=== PATIENT | female | born 1970 | race Caucasian/White ===

== ENCOUNTER 2018-12-16 13:22 | Inpatient (IN) | payer OTHER ==
[2018-12-16 15:31] VITALS: BMI 18.8
--- NOTE | 2018-12-16 18:06 | HP ---
COWS - Scale Resting Pulse: 0= [place] 80 or Below Sweatin= Chills/Flushing Restless Observation: 1= Difficult to Sit Still Pupil Size: 0= Normal to Room Light Bone or Joint Aches: 1= Mild Discomfort Runny Nose/ Eye Tearin= Runny Nose/Eyes GI Upset > 30mins: 2= Nausea/Diarrhea Tremor Observation: 1= Tremor [place], Not Seen Yawning Observation: 0= None Anxiety or Irritability: 2=Irritable/Anxious Goose Flesh Skin: 0=Smooth Skin COWS Score: 10 CIWA Score Nausea/Vomitin Muscle Tremors: 1-None Visible, but [place] Anxiety: 3 Agitation: 2 Paroxysmal Sweats: 1-Minimal Palms Moist Orientation: 1-Uncertain about Date Tacttile Disturbances: 0-None Auditory Disturbances: 0-None Visual Disturbances: 0-None Headache: 2-Mild CIWA-Ar Total Score: 12 - Admission Criteria [facility]ASAS Guidelines: Admission for Medically Managed Detox: Requires at least one of the followin. CIWA greater than 12 2. Seizures within the past 24 hours 3. Delirium tremens within the past 24 hours 4. Hallucinations within the past 24 hours 5. Acute intervention needed for co occurring medical disorder 6. Acute intervention needed for co occurring psychiatric disorder 7. Severe withdrawal that cannot be handled at a lower level of care (continued vomiting, continued diarrhea, abnormal vital signs) requiring intravenous medication and/or fluids 8. Admission ROS [facility] Chief Complaint: HEROIN/ ETOH WITHDRAWAL SX Allergies/Adverse Reactions: Allergies Allergy/AdvReac Type Severity Reaction Status Date / Time No Known Allergies Allergy Verified 12/16/18 17:16 History of Present Illness: THIS IS PATIENTS FIRST ADMISSION TO [facility]. PATIENT PRESENTS WITH ETOH AND HEROIN WITHDRAWAL SX. PATIENT REPORTS DRINKING SINCE AGE 10, DRINKS 3 PINTS DAILY, LAST DRINK TODAY. ALSO SNIFFS 5 BAGS OF HEROIN DAILY DESPITE BEING ON MMTP AT [facility]. LAST DOSE TODAY, AND REPORTS DAILY DOSE OF 170MG . RN VERIFICATION PENDING. PATIENT DENIES IVDA, LEGAL PROBLEMS AND LIVES WITH FAMILY. UDS +DELMA, OPI AND MTD. STATES COCAINE LIKELY MIXED WITH HEROIN. ALSO BUYS NON-PRESCRIBED KLONIPIN AND LAST DOSE 1-2 DAYS AGO. PATIENT DENIES MENTAL ILLNESS. PMH INCLUDES HEP C WHICH IS UNTREATED. DENIES SI/HI AND SUICIDE ATTEMPTS. Exam Limitations: No Limitations - Ebola screening Have you traveled outside of the country in the last 21 days: No Have you had contact with anyone from an Ebola affected area: No Have you been sick,other than usual withdrawal symptoms: No - Review of Systems Constitutional: Chills, Night Sweats, Changes in sleep, Unintentional Wgt. Loss EENT: reports: Nose Congestion Respiratory: reports: No Symptoms reported Cardiac: reports: No Symptoms Reported GI: reports: Diarrhea, Nausea, Poor Appetite, Poor Fluid Intake, Abdominal cramping : reports: No Symptoms Reported Musculoskeletal: reports: Back Pain, Muscle Pain Integumentary: reports: Sweating Neuro: reports: No Symptoms reported Endocrine: reports: Unexplained Weight Loss Hematology: reports: No Symptoms Reported Psychiatric: reports: Anxious Patient History - Patient Medical History Hx Anemia: No Hx Asthma: No Hx Chronic Obstructive Pulmonary Disease (COPD): No Hx Cancer: No Hx Cardiac Disorders: No Hx Congestive Heart Failure: No Hx Hypertension: No Hx Hypercholesterolemia: No Hx Pacemaker: No HX Cerebrovascular Accident: No Hx Seizures: No Hx Dementia: No Hx Diabetes: No Hx Gastrointestinal Disorders: No Hx Liver Disease: No Hx Genitourinary Disorders: No Hx Sexually Transmitted Disorders: No Hx Renal Disease (ESRD): No Hx Thyroid Disease: No Hx Human Immunodeficiency Virus (HIV): No Hx Hepatitis C: Yes (EXPOSED, NOT TREATED) Hx Depression: No Hx Suicide Attempt: No Hx Bipolar Disorder: No Hx Schizophrenia: No - Patient Surgical History Past Surgical History: No Hx Neurologic Surgery: No Hx Cataract Extraction: No Hx Cardiac Surgery: No Hx Lung Surgery: No Hx Breast Surgery: No Hx Breast Biopsy: No Hx Abdominal Surgery: No Hx Cholecystectomy: No Hx Genitourinary Surgery: No Hx Section: No Hx Orthopedic Surgery: No Hx Hysterectomy: No Anesthesia Reaction: No - PPD History Previous Implant?: Yes Documented Results: Negative w/o proof PPD to be Administered?: Yes - Reproductive History Patient is a Female of Child Bearing Age (11 -55 yrs old): Yes Patient : No - Smoking Cessation Smoking history: Current every day smoker Have you smoked in the past 12 months: Yes Aproximately how many cigarettes per day: 20 Hx Chewing Tobacco Use: No Initiated information on smoking cessation: Yes 'Breaking Loose' booklet given: 12/16/18 - Substance & Tx. History Hx Alcohol Use: Yes Hx Substance Use: Yes Substance Use Type: Alcohol, Cocaine, Prescribed Hx Substance Use Treatment: Yes - Substances Abused Alcohol Route: Oral Frequency: Daily Amount used: liquor- 3 pints Age of first use: 14 Date of Last Use: 12/16/18 Heroin Route: Inhalation Frequency: Daily Amount used: 5 BAGS Age of first use: 10 Date of Last Use: 12/15/18 Family Disease History - Family Disease History Family History: Denies Admission Physical Exam [facility] - Vital Signs Vital Signs: Vital Signs - 24 hr 12/16/18 15:28 Temperature 96.4 F L Pulse Rate 63 Respiratory 18 Rate Blood Pressure 105/59 L - Physical General Appearance: Yes: Disheveled, Thin, Sweating, Anxious HEENTM: Yes: EOMI, Hearing grossly Normal, Normal Voice, NETTA, Pharynx Normal, Nasal Congestion, Other (DENTURES) Respiratory: Yes: Chest Non-Tender, Lungs Clear, Normal Breath Sounds, No Respiratory Distress, No Accessory Muscle Use Neck: Yes: No masses,lesions,Nodules, Supple, Trachea in good position Breast: Yes: Breast Exam Deferred Cardiology: Yes: Regular Rhythm, Regular Rate, S1, S2 Abdominal: Yes: Normal Bowel Sounds, Non Tender, Flat, Soft Genitourinary: Yes: Within Normal Limits Back: Yes: Muscle Spasm Musculoskeletal: Yes: full range of Motion, Gait Steady, Back pain, Muscle Pain Extremities: Yes: Normal Inspection, Normal Range of Motion, Non-Tender Neurological: Yes: launching pad mechanic II-XII NML intact, Alert, Motor Strength 5/5, Normal Response, Other (ANXIOUS AND FORGETFUL WITH DATE) Integumentary: Yes: Normal Color, Warm, Moist Lymphatic: Yes: Within Normal Limits - Diagnostic (1) Alcohol dependence with uncomplicated withdrawal Current Visit: Yes Status: Acute (2) Sedative, hypnotic or anxiolytic abuse with sedative, hypnotic or anxiolytic -induced anxiety disorder Current Visit: Yes Status: Acute (3) Methadone maintenance therapy patient Current Visit: Yes Status: Chronic (4) Hep C w/o coma, chronic Current Visit: Yes Status: Suspected Cleared for Admission [facility] - Detox or Rehab [facility] Level of Care: Medically Managed Detox Regimen/Protocol: Valium [facility] Breath Alcohol Content Breath Alcohol Content: 0.006 Urine Pregancy Test - Result Urine Test Results: Negative - NO Line Present Urine Drug Screen - Results Drug Screen Negative: No Urine Drug Screen Results: DELMA-Cocaine, OPI-Opiates, MTD-Methadone Inpatient Rehab Admission - Rehab Decision to Admit Inpatient rehab admission?: No
[2018-12-16] MEDS ORDERED: hydrOXYzine PAMOATE 25 MG CAPSULE (FP) PO PRN (18:11)
[2018-12-16] MEDS ORDERED: IBUPROFEN 400 MG TABLET (FP) PO PRN (18:11)
[2018-12-16] MEDS ORDERED: MAGNESIUM HYDROX 2400MG/30ML ORAL SUSPENSION 30 ML CUP PO PRN (18:11)
[2018-12-16] MEDS ORDERED: MAGNESIUM CITRATE 300 ML BOTTLE PO PRN (18:11)
[2018-12-16] MEDS ORDERED: MELATONIN 5 MG TABLETS PO PRN (18:11)
[2018-12-16] MEDS ORDERED: MENTHOL/PHENOL 1 EACH UD MM PRN (18:11)
[2018-12-16] MEDS ORDERED: MAG HYDROX/AL HYDROX/SIMETH 30 ML UNIT-DOSE CUP PO PRN (18:11)
[2018-12-16] MEDS ORDERED: ACETAMINOPHEN 325 MG TABLET (FP) PO PRN (18:11)
[2018-12-16] MEDS ORDERED: DICYCLOMINE HCL 10 MG CAPSULE PO PRN (18:11)
[2018-12-16] MEDS ORDERED: BISMUTH SUBSALICYLATE 524 MG/30 ML UD PO PRN (18:11)
[2018-12-16] MEDS: diazePAM 5 MG TABLET PO PRN (21:15)
[2018-12-16] MEDS: diazePAM 5 MG TABLET PO SCH ×2 (21:16→23:02)
[2018-12-16] MEDS: THIAMINE HCL 100 MG TABLET (FP) PO SCH (23:02)
[2018-12-17] MEDS: diazePAM 5 MG TABLET PO SCH ×3 (05:56→22:25)
[2018-12-17] MEDS: PRENATAL VITAMINS W/ FOLIC ACID TABLET (FP) PO SCH (10:34)
[2018-12-17] MEDS: NICOTINE 21 MG/24 HOURS TOPICAL PATCH TD SCH (10:35)
[2018-12-17] MEDS: NICOTINE POLACRILEX 2 MG GUM BUC PRN (10:35)
[2018-12-17] MEDS: diazePAM 5 MG TABLET PO PRN (10:36)
[2018-12-17 11:28] LABS: HEMATOCRIT 37.8 % (32.4-45.2); MCH 29.7 pg (25.7-33.7); MCHC 34.3 g/dl (32.0-36.0); MEAN CELL VOLUME 86.6 fl (80-96); MEAN PLT VOLUME 9.1 fl (7.5-11.1); PLATELET COUNT 156 K/MM3 (134-434); RBC 4.37 M/mm3 (3.60-5.2); RDW 15.1 % (11.6-15.6)
--- NOTE | 2018-12-17 12:03 | EKG ---
Test Reason : Blood Pressure : / mmHG Vent. Rate : 059 BPM Atrial Rate : 059 BPM P-R Int : 150 ms QRS Dur : 080 ms QT Int : 460 ms P-R-T Axes : 073 076 064 degrees QTc Int : 455 ms SINUS BRADYCARDIA MINIMAL VOLTAGE CRITERIA FOR LVH, MAY BE NORMAL VARIANT BORDERLINE ECG NO PREVIOUS ECGS AVAILABLE Confirmed by GAURANG KRISHNAMURTHY MD ([id number]) on 12/17/2018 12:03:00 PM Referred By: Confirmed By:GAURANG KRISHNAMURTHY MD
[2018-12-17 12:11] LABS: ALK PHOS 83 U/L (45-117); ANION GAP 7 MMOL/L (8-16); BILIRUBIN,TOTAL 0.3 mg/dL (0.2-1); BLOOD UREA NITROGEN 22 mg/dL (7-18); CALCIUM 8.3 mg/dL (8.5-10.1); CHLORIDE 108 mmol/L (98-107); CO2 29 mmol/L (21-32); CREATININE 0.7 mg/dL (0.55-1.3); GLUCOSE,RANDOM 109 mg/dL (74-106); POTASSIUM 3.6 mmol/L (3.5-5.1); SGOT/AST 20 U/L (15-37); SGPT/ALT 22 U/L (13-61); SODIUM 143 mmol/L (136-145); TOT PROT 5.6 g/dl (6.4-8.2)
[2018-12-17] MEDS ORDERED: METHADONE HCL 10 MG TABLET PO ONE (13:54)
--- NOTE | 2018-12-17 13:57 | PN ---
NARENDRA Progress Note Note: patient is taking methadone 170 mg po daily last dose 12/16/18 verified by the nurse begin methadone 170 mg po today now and following day at 06am
--- NOTE | 2018-12-17 14:10 | PN ---
[facility] CIWA - CIWA Score Nausea/Vomitin-No Nausea/No Vomiting Muscle Tremors: 2 Anxiety: 1-Mildly Anxious Agitation: 1-Slight > Activity Paroxysmal Sweats: 1-Minimal Palms Moist Orientation: 1-Uncertain about Date Tacttile Disturbances: 0-None Auditory Disturbances: 0-None Visual Disturbances: 0-None Headache: 1-Very Mild CIWA-Ar Total Score: 7 S Progress Note (SOAP) Subjective: low energy trouble sleep at night tremor sweating Objective: 12/17/18 14:39 Vital Signs Temperature 98.4 F 12/17/18 14:23 Pulse Rate 71 12/17/18 14:23 Respiratory Rate 16 12/17/18 14:23 Blood Pressure 102/59 L 12/17/18 14:23 O2 Sat by Pulse Oximetry (%) Laboratory Last Values WBC 5.0 K/mm3 (4.0-10.0) 12/17/18 07:30 RBC 4.37 M/mm3 (3.60-5.2) 12/17/18 07:30 Hgb 13.0 GM/dL (10.7-15.3) 12/17/18 07:30 Hct 37.8 % (32.4-45.2) 12/17/18 07:30 MCV 86.6 fl (80-96) 12/17/18 07:30 MCH 29.7 pg (25.7-33.7) 12/17/18 07:30 MCHC 34.3 g/dl (32.0-36.0) 12/17/18 07:30 RDW 15.1 % (11.6-15.6) 12/17/18 07:30 Plt Count 156 K/MM3 (134-434) 12/17/18 07:30 MPV 9.1 fl (7.5-11.1) 12/17/18 07:30 Sodium 143 mmol/L (136-145) 12/17/18 07:30 Potassium 3.6 mmol/L (3.5-5.1) 12/17/18 07:30 Chloride 108 mmol/L (98-107) H 12/17/18 07:30 Carbon Dioxide 29 mmol/L (21-32) 12/17/18 07:30 Anion Gap 7 MMOL/L (8-16) L 12/17/18 07:30 BUN 22 mg/dL (7-18) H 12/17/18 07:30 Creatinine 0.7 mg/dL (0.55-1.3) 12/17/18 07:30 Creat Clearance w eGFR 88.57 (>60) 12/17/18 07:30 Random Glucose 109 mg/dL (74-106) H 12/17/18 07:30 Calcium 8.3 mg/dL (8.5-10.1) L 12/17/18 07:30 Total Bilirubin 0.3 mg/dL (0.2-1) 12/17/18 07:30 AST 20 U/L (15-37) 12/17/18 07:30 ALT 22 U/L (13-61) 12/17/18 07:30 Alkaline Phosphatase 83 U/L (45-117) 12/17/18 07:30 Total Protein 5.6 g/dl (6.4-8.2) L 12/17/18 07:30 Albumin 3.0 g/dl (3.4-5.0) L 12/17/18 07:30 RPR Titer Nonreactive (NONREACTIVE) 12/17/18 07:30 lab noted Assessment: 12/17/18 14:39 withdrawal sx Plan: continue detox
[2018-12-17] MEDS ORDERED: METHADONE 160 MG, METHADONE 10 MG PO ONE (14:15)
[2018-12-17] MEDS ORDERED: METHADONE HCL 40 MG DISPERSABLE TABLET ONE (14:24)
[2018-12-17] MEDS ORDERED: METHADONE HCL 10 MG TABLET ONE (14:24)
[2018-12-17] MEDS: THIAMINE HCL 100 MG TABLET (FP) PO SCH (22:25)
[2018-12-18] MEDS ORDERED: METHADONE HCL 40 MG DISPERSABLE TABLET ONE (04:55)
[2018-12-18] MEDS ORDERED: METHADONE HCL 10 MG TABLET ONE (04:55)
[2018-12-18] MEDS: METHADONE 160 MG, METHADONE 10 MG PO SCH (05:42)
[2018-12-18] MEDS ORDERED: diazePAM 5 MG TABLET PO ONE (06:00)
[2018-12-18] MEDS ORDERED: METHADONE HCL 10 MG TABLET PO SCH (06:00)
--- NOTE | 2018-12-18 09:21 | PN ---
[facility] CIWA - CIWA Score Nausea/Vomitin-No Nausea/No Vomiting Muscle Tremors: 1-None Visible, but [place] Anxiety: 1-Mildly Anxious Agitation: 1-Slight > Activity Paroxysmal Sweats: 1-Minimal Palms Moist Orientation: 0-Oriented Tacttile Disturbances: 0-None Auditory Disturbances: 0-None Visual Disturbances: 0-None Headache: 1-Very Mild CIWA-Ar Total Score: 5 S Progress Note (SOAP) Subjective: people told me my discharge date is tomorrow I am not leaving today patient is doing well with the detox regimen and feeling better today patient preferring return to methadone program for medical and mental issues Objective: 12/18/18 10:35 Vital Signs Temperature 99.0 F 12/18/18 09:30 Pulse Rate 68 12/18/18 09:30 Respiratory Rate 18 12/18/18 09:30 Blood Pressure 109/58 L 12/18/18 09:30 O2 Sat by Pulse Oximetry (%) Laboratory Last Values WBC 5.0 K/mm3 (4.0-10.0) 12/17/18 07:30 RBC 4.37 M/mm3 (3.60-5.2) 12/17/18 07:30 Hgb 13.0 GM/dL (10.7-15.3) 12/17/18 07:30 Hct 37.8 % (32.4-45.2) 12/17/18 07:30 MCV 86.6 fl (80-96) 12/17/18 07:30 MCH 29.7 pg (25.7-33.7) 12/17/18 07:30 MCHC 34.3 g/dl (32.0-36.0) 12/17/18 07:30 RDW 15.1 % (11.6-15.6) 12/17/18 07:30 Plt Count 156 K/MM3 (134-434) 12/17/18 07:30 MPV 9.1 fl (7.5-11.1) 12/17/18 07:30 Sodium 143 mmol/L (136-145) 12/17/18 07:30 Potassium 3.6 mmol/L (3.5-5.1) 12/17/18 07:30 Chloride 108 mmol/L (98-107) H 12/17/18 07:30 Carbon Dioxide 29 mmol/L (21-32) 12/17/18 07:30 Anion Gap 7 MMOL/L (8-16) L 12/17/18 07:30 BUN 22 mg/dL (7-18) H 12/17/18 07:30 Creatinine 0.7 mg/dL (0.55-1.3) 12/17/18 07:30 Creat Clearance w eGFR 88.57 (>60) 12/17/18 07:30 Random Glucose 109 mg/dL (74-106) H 12/17/18 07:30 Calcium 8.3 mg/dL (8.5-10.1) L 12/17/18 07:30 Total Bilirubin 0.3 mg/dL (0.2-1) 12/17/18 07:30 AST 20 U/L (15-37) 12/17/18 07:30 ALT 22 U/L (13-61) 12/17/18 07:30 Alkaline Phosphatase 83 U/L (45-117) 12/17/18 07:30 Total Protein 5.6 g/dl (6.4-8.2) L 12/17/18 07:30 Albumin 3.0 g/dl (3.4-5.0) L 12/17/18 07:30 RPR Titer Nonreactive (NONREACTIVE) 12/17/18 07:30 lab oted Assessment: 12/18/18 10:36 mild withdrawal sx Plan: continue detox
[2018-12-18] MEDS: NICOTINE 21 MG/24 HOURS TOPICAL PATCH TD SCH (10:42)
[2018-12-18] MEDS: PRENATAL VITAMINS W/ FOLIC ACID TABLET (FP) PO SCH (10:42)
[2018-12-18] MEDS: NICOTINE POLACRILEX 2 MG GUM BUC PRN (10:43)
[2018-12-18] MEDS: THIAMINE HCL 100 MG TABLET (FP) PO SCH (22:39)
[2018-12-18 23:48] LABS: EPI CELLS 4.2 /HPF (0-5); HYALINE CASTS 2 /hpf (0-8); PH,URINE 6.5 (5.0-8.0); URINE APPEARANCE CLOUDY; URINE BACTERIA >9000 /hpf (NEGATIVE); URINE BILIRUBIN NEGATIVE (<2.0 mg/dL); URINE COLOR YELLOW; URINE GLUCOSE (UA) NEGATIVE (NEGATIVE); URINE KETONE NEGATIVE (NEGATIVE); URINE LEUK ESTERASE 1+ (NEGATIVE); URINE NITRITE POSITIVE (NEGATIVE); URINE PROTEIN NEGATIVE (NEGATIVE); URINE RBC 1 /hpf (0-4); URINE UROBILINOGEN 0.2 mg/dL (0.2-1.0); URINE WBC 6 /hpf (0-5)
[2018-12-19] MEDS ORDERED: METHADONE HCL 10 MG TABLET ONE (03:13)
[2018-12-19] MEDS ORDERED: METHADONE HCL 40 MG DISPERSABLE TABLET ONE (03:13)
[2018-12-19] MEDS: METHADONE 160 MG, METHADONE 10 MG PO SCH (05:51)
[2018-12-19 08:35] LABS: URINE CRYSTALS 3 /hpf
[2018-12-19] MEDS: PRENATAL VITAMINS W/ FOLIC ACID TABLET (FP) PO SCH (10:06)
[2018-12-19] MEDS: NICOTINE 21 MG/24 HOURS TOPICAL PATCH TD SCH (10:06)
--- NOTE | 2018-12-19 12:34 | PN ---
S Progress Note (SOAP) Subjective: pt still feels like she is in withdrawal from Benzo- will keep here for another day. Additional dose of valium in AM. Plan d/c to rehab tomorrow O: Vital Signs - 24 hr 12/18/18 12/18/18 12/18/18 13:27 17:52 21:21 Temperature 97.8 F 97.8 F 97.5 F L Pulse Rate 60 69 66 Respiratory 20 18 18 Rate Blood Pressure 104/62 110/69 106/63 12/19/18 12/19/18 12/19/18 00:30 06:33 09:42 Temperature 97.1 F L 98.1 F Pulse Rate 62 64 Respiratory 18 18 18 Rate Blood Pressure 122/70 113/53 L Laboratory Tests 12/17/18 12/17/18 12/17/18 07:30 07:30 07:30 WBC 5.0 RBC 4.37 Hgb 13.0 Hct 37.8 MCV 86.6 MCH 29.7 MCHC 34.3 RDW 15.1 Plt Count 156 MPV 9.1 Sodium 143 Potassium 3.6 Chloride 108 H Carbon Dioxide 29 Anion Gap 7 L BUN 22 H Creatinine 0.7 Creat Clearance w eGFR 88.57 Random Glucose 109 H Calcium 8.3 L Total Bilirubin 0.3 AST 20 ALT 22 Alkaline Phosphatase 83 Total Protein 5.6 L Albumin 3.0 L Urine Color Urine Appearance Urine pH Ur Specific [place] Urine Protein Urine Glucose (UA) Urine Ketones Urine Blood Urine Nitrite Urine Bilirubin Urine Urobilinogen Ur Leukocyte Esterase Urine WBC (Auto) Urine RBC (Auto) Urine Casts (Auto) U Epithel Cells (Auto) Urine Crystals (Auto) Urine Bacteria (Auto) RPR Titer Nonreactive 12/18/18 22:00 WBC RBC Hgb Hct MCV MCH MCHC RDW Plt Count MPV Sodium Potassium Chloride Carbon Dioxide Anion Gap BUN Creatinine Creat Clearance w eGFR Random Glucose Calcium Total Bilirubin AST ALT Alkaline Phosphatase Total Protein Albumin Urine Color Yellow Urine Appearance Cloudy Urine pH 6.5 Ur Specific [place] 1.018 Urine Protein Negative Urine Glucose (UA) Negative Urine Ketones Negative Urine Blood Negative Urine Nitrite Positive Urine Bilirubin Negative Urine Urobilinogen 0.2 Ur Leukocyte Esterase 1+ Urine WBC (Auto) 6 Urine RBC (Auto) 1 Urine Casts (Auto) 2 U Epithel Cells (Auto) 4.2 Urine Crystals (Auto) 3 Urine Bacteria (Auto) >9000 RPR Titer a/p: continue valium- pt states she feels like she is in withdrawal from benzo taper- will continue valium for one more day d/c to [facility] tomorrow.
[2018-12-19] MEDS: THIAMINE HCL 100 MG TABLET (FP) PO SCH (22:17)
[2018-12-20] MEDS ORDERED: METHADONE HCL 40 MG DISPERSABLE TABLET ONE (05:03)
[2018-12-20] MEDS ORDERED: METHADONE HCL 10 MG TABLET ONE (05:03)
[2018-12-20] MEDS: METHADONE 160 MG, METHADONE 10 MG PO SCH (05:42)
[2018-12-20] MEDS ORDERED: diazePAM 5 MG TABLET PO SCH (06:00)
[2018-12-20 06:16] VITALS: BP 117/71; PULSE 62; TEMP 97.5
--- NOTE | 2018-12-20 15:04 | DS ---
[facility] Detox Discharge Summary Admission Date: 12/16/18 Discharge Date: 12/20/18 - History Present History: Alcohol Dependence, Opioid Dependence, Sedative Dependence, MMTP Additional Comments: PATIENT GOING TO [facility] FOR AFTERCARE. PATIENT WAS DISCHARGED FROM DETOX UNIT IN STABLE MEDICAL CONDITION. Pertinent Past History: M.M.T.P., History of Hep C. - Physical Exam Results Vital Signs: Vital Signs Temperature 97.5 F L 12/20/18 06:16 Pulse Rate 62 12/20/18 06:16 Respiratory Rate 18 12/20/18 06:16 Blood Pressure 117/71 12/20/18 06:16 O2 Sat by Pulse Oximetry (%) Pertinent Admission Physical Exam Findings: WITHDRAWAL SYMPTOMS. Laboratory Tests 12/17/18 12/17/18 12/17/18 07:30 07:30 07:30 WBC 5.0 RBC 4.37 Hgb 13.0 Hct 37.8 MCV 86.6 MCH 29.7 MCHC 34.3 RDW 15.1 Plt Count 156 MPV 9.1 Sodium 143 Potassium 3.6 Chloride 108 H Carbon Dioxide 29 Anion Gap 7 L BUN 22 H Creatinine 0.7 Creat Clearance w eGFR 88.57 Random Glucose 109 H Calcium 8.3 L Total Bilirubin 0.3 AST 20 ALT 22 Alkaline Phosphatase 83 Total Protein 5.6 L Albumin 3.0 L Urine Color Urine Appearance Urine pH Ur Specific [place] Urine Protein Urine Glucose (UA) Urine Ketones Urine Blood Urine Nitrite Urine Bilirubin Urine Urobilinogen Ur Leukocyte Esterase Urine WBC (Auto) Urine RBC (Auto) Urine Casts (Auto) U Epithel Cells (Auto) Urine Crystals (Auto) Urine Bacteria (Auto) RPR Titer Nonreactive 12/18/18 22:00 WBC RBC Hgb Hct MCV MCH MCHC RDW Plt Count MPV Sodium Potassium Chloride Carbon Dioxide Anion Gap BUN Creatinine Creat Clearance w eGFR Random Glucose Calcium Total Bilirubin AST ALT Alkaline Phosphatase Total Protein Albumin Urine Color Yellow Urine Appearance Cloudy Urine pH 6.5 Ur Specific [place] 1.018 Urine Protein Negative Urine Glucose (UA) Negative Urine Ketones Negative Urine Blood Negative Urine Nitrite Positive Urine Bilirubin Negative Urine Urobilinogen 0.2 Ur Leukocyte Esterase 1+ Urine WBC (Auto) 6 Urine RBC (Auto) 1 Urine Casts (Auto) 2 U Epithel Cells (Auto) 4.2 Urine Crystals (Auto) 3 Urine Bacteria (Auto) >9000 RPR Titer LABS NOTED. - Treatment Hospital Course: Detox Protocol Followed, Detoxed Safely, Responded well, Discharged Condition Good, Rehab Referral Accepted Patient has Accepted a Rehab Referral to: [facility]. - Diagnosis (1) Alcohol dependence with uncomplicated withdrawal Status: Acute (2) Sedative, hypnotic or anxiolytic abuse with sedative, hypnotic or anxiolytic -induced anxiety disorder Status: Acute (3) Methadone maintenance therapy patient Status: Chronic (4) Hep C w/o coma, chronic Status: Suspected - AMA Did Patient Leave Against Medical Advice: No
== END 2018-12-20 07:10 | disposition home or self-care (01) | DRG 773 ==
LOC: YASAS 13:22 → Y3N 19:10
PROVIDERS: ADMIT Surgery; ATTEND Surgery
PROC: HZ2ZZZZ Detoxification Services for Substance Abuse Treatment (ICD-10-PCS; principal; 2018-12-16)
DX: F10.230 Alcohol dependence with withdrawal, uncomplicated (principal); F13.230 Sedative, hypnotic or anxiolytic dependence with withdrawal, uncomplicated; F11.20 Opioid dependence, uncomplicated; B18.2 Chronic viral hepatitis C
CPT/HCPCS: 36415; 80053; 81003; 85027; 86593; 93005; 93010